=== PATIENT | female | born 1975 | race Two or more races ===

== ENCOUNTER 2019-02-28 13:25 | Inpatient (IN) | payer MEDICARE, MEDICAID ==
[~2019-02-28] VITALS: Ht 160 cm; Wt 108.0 kg
[2019-02-28 14:34] LABS: APPEARANCE,URINE CLEAR (CLEAR); BILIRUBIN,URINE NEGATIVE (NEGATIVE); GLUCOSE, URINE (UA) >=1000 mg/dL (NEGATIVE); KETONES,URINE NEGATIVE (NEGATIVE); LEUKOCYTE ESTERASE ,URINE NEGATIVE (NEGATIVE); NITRATE,URINE NEGATIVE (NEGATIVE); OCCULT BLOOD,URINE NEGATIVE (NEGATIVE); PH,URINE 6.5 (5.0-8.0); PROTEIN,URINE NEGATIVE (NEGATIVE); UROBILINOGEN,URINE 0.2 mg/dL (<=1.0)
[2019-02-28 14:45] LABS: BACTERIA,URINE None Seen /HPF (None Seen); RBC,URINE None Seen /HPF (0-2); SQUAMOUS EPITHELIAL CELL,UR Few /LPF (None Seen); WBC,URINE None Seen /HPF (0-5)
[2019-02-28 15:23] LABS: AMPHET/METH SCREEN,URINE NEGATIVE (NEGATIVE); BARBITURATE SCREEN, URINE NEGATIVE (NEGATIVE); BENZODIAZEPINES SCREEN,URINE NEGATIVE (NEGATIVE); CANNABINOID SCREEN,URINE POSITIVE (NEGATIVE); COCAINE SCREEN,URINE NEGATIVE (NEGATIVE); METHADONE SCREEN, URINE NEGATIVE (NEGATIVE); OPIATE SCREEN,URINE NEGATIVE (NEGATIVE)
[2019-02-28 15:25] LABS: PHENCYCLIDINE SCREEN,URINE NEGATIVE (NEGATIVE)
[2019-02-28] MEDS ORDERED: SODIUM CHLORIDE 0.9% 1,000 ML IV ONE (15:45)
[2019-02-28] MEDS ORDERED: 0.9% SODIUM CHLORIDE 10 ML SYRINGE IVP PRN (15:45)
[2019-02-28 15:49] LABS: GLUCOSE,POINT OF CARE 428 MG/DL (70-110)
[2019-02-28 16:03] LABS: BASOPHILS % (AUTO) 0.5 % (0.0-2.0); EOSINOPHILS % (AUTO) 1.7 % (1.0-6.0); HEMATOCRIT 38.1 % (36-46); HEMOGLOBIN 12.7 g/dL (12.0-16.0); LYMPHOCYTES % (AUTO) 29.1 % (22.0-44.0); MEAN CORPUSCULAR HGB CONC 33.4 G/dL (31.0-37.0); MEAN CORPUSCULAR VOLUME 90 fL (80-100); MONOCYTES # (AUTO) 0.3 K/uL (0.1-1.0); MONOCYTES % (AUTO) 3.2 % (2.0-9.0); NEUTROPHILS # (AUTO) 6.7 K/uL (1.8-7.7); NEUTROPHILS % (AUTO) 65.5 % (40.0-70.0); PLATELET COUNT (AUTO) 282 K/uL (150-450); RED BLOOD CELL COUNT(AUTO) 4.26 MIL/uL (4.00-5.20); RED CELL DISTRIBUTION WIDTH 13.5 % (11.5-14.5)
[2019-02-28 16:37] LABS: ALANINE AMINOTRANSFERASE 70 U/L (12-78); ALBUMIN 3.4 g/dL (3.4-5.0); ALKALINE PHOSPHATASE 206 U/L (46-116); ANION GAP 13 mmol/L (8-16); ASPARTATE AMINOTRANSFERASE 22 U/L (15-37); BILIRUBIN,TOTAL 0.2 mg/dL (0.1-1.0); CALCIUM, TOTAL 9.4 mg/dL (8.8-10.5); CARBON DIOXIDE 21 mmol/L (22-29); CHLORIDE 101 mmol/L (98-107); CREATININE 0.79 mg/dL (0.60-1.30); GLOMERULAR FILTR. RATE CALC > 60 mL/min (>60); POTASSIUM 3.8 mmol/L (3.5-5.1); SODIUM SERUM 135 mmol/L (136-145); UREA NITROGEN, BLOOD 12 mg/dL (7-18)
[2019-02-28 16:39] LABS: GLUCOSE,RANDOM 423 mg/dL (70-110)
[2019-02-28] MEDS ORDERED: INSULIN REGULAR, HUMAN 100 UNITS/ML SQ ONE (17:30)
[2019-02-28 17:49] LABS: GLUCOSE,POINT OF CARE 303 MG/DL (70-110)
[2019-02-28] MEDS ORDERED: ZOLPIDEM TARTRATE 10 MG TABLET PO PRN (21:15)
[2019-02-28] MEDS ORDERED: LORazepam 2 MG TABLET PO PRN (21:15)
[2019-02-28] MEDS: OLANZapine 5 MG TABLET PO SCH (21:37)
[2019-02-28] MEDS: GABAPENTIN 300 MG CAPSULE PO SCH (21:37)
[2019-03-01] VITALS (13 sets, daily range): BP systolic 110–138; BP diastolic 60–85
[2019-03-01 00:19] LABS: GLUCOSE,POINT OF CARE 240 MG/DL (70-110)
[2019-03-01] MEDS ORDERED: ACETAMINOPHEN 650 MG/20.3 ML SOLUTION UDCUP PO PRN (01:45)
[2019-03-01] MEDS ORDERED: IBUPROFEN 600 MG TABLET PO ONE (01:45)
[2019-03-01] MEDS ORDERED: ACETAMINOPHEN 325 MG TABLET PO PRN (02:00)
[2019-03-01 06:25] LABS: GLUCOMETER DEV NAME(LOC) BV3S.; GLUCOSE,POINT OF CARE 239 MG/DL (70-110)
[2019-03-01] MEDS: GABAPENTIN 300 MG CAPSULE PO SCH ×2 (09:41→17:43)
[2019-03-01] MEDS: OLANZapine 5 MG TABLET PO SCH ×2 (09:41→17:43)
[2019-03-01] MEDS: ESCITALOPRAM OXALATE 10 MG TABLET PO SCH (09:41)
[2019-03-01] MEDS ORDERED: PETROLATUM,WHITE 28 GM JELLY TP PRN (12:30)
[2019-03-01] MEDS ORDERED: ONDANSETRON HCL 4 MG TABLET PO PRN (12:30)
[2019-03-01] MEDS ORDERED: GuaiFENesin/D-METHORPHAN [SUGAR-FREE] 200-20MG/10 ML SYRUP UDCUP PO PRN (12:30)
[2019-03-01] MEDS ORDERED: MAGNESIUM HYDROXIDE SUSPENSION 30 ML UDCUP PO PRN (12:30)
[2019-03-01] MEDS ORDERED: DOCUSATE SODIUM 100 MG CAPSULE PO PRN (12:30)
[2019-03-01] MEDS ORDERED: DEXTROSE 50%-WATER 25 GM/50 ML SYRINGE IVP PRN (12:30)
[2019-03-01] MEDS ORDERED: LOPERAMIDE HCL 2 MG CAPSULE PO PRN (12:30)
[2019-03-01] MEDS ORDERED: ALBUTEROL SULFATE HFA 90 MCG/PUFF 8 GM INHALER IH PRN (12:30)
[2019-03-01] MEDS ORDERED: CloNIDine HCL 0.1 MG TABLET PO PRN (12:30)
[2019-03-01] MEDS ORDERED: IBUPROFEN 400 MG TABLET PO PRN (12:30)
[2019-03-01] MEDS ORDERED: MAG HYDROX/AL HYDROX/SIMETH ES 30 ML SUSPENSION UDCUP PO PRN (12:30)
[2019-03-01] MEDS: TraMADol HCL 50 MG TABLET PO PRN ×2 (12:42→21:39)
[2019-03-01] MEDS: LORazepam 1 MG TABLET PO PRN (16:55)
[2019-03-01] MEDS: ACETAMINOPHEN 325 MG TABLET PO PRN (16:58)
[2019-03-01 17:15] LABS: GLUCOMETER DEV NAME(LOC) BV3S.; GLUCOSE,POINT OF CARE 269 MG/DL (70-110)
[2019-03-01] MEDS: INSULIN LISPRO 100 UNITS/ML SQ PRN ×2 (17:20→21:15)
[2019-03-01 21:23] LABS: GLUCOMETER DEV NAME(LOC) BV3S.; GLUCOSE,POINT OF CARE 291 MG/DL (70-110)
[2019-03-02 01:23] VITALS: BP 112/70
[2019-03-02] MEDS ORDERED: GLUCAGON,HUMAN RECOMBINANT 1 MG VIAL IM PRN (02:00)
[2019-03-02 04:14] VITALS: BP 115/73
[2019-03-02] MEDS: ACETAMINOPHEN 325 MG TABLET PO PRN (04:22)
[2019-03-02 05:30] VITALS: BP 121/77
[2019-03-02 06:24] LABS: GLUCOMETER DEV NAME(LOC) BV3S.; GLUCOSE,POINT OF CARE 285 MG/DL (70-110)
[2019-03-02] MEDS: LORazepam 1 MG TABLET PO PRN ×2 (06:27→16:13)
[2019-03-02] MEDS: TraMADol HCL 50 MG TABLET PO PRN ×2 (06:27→16:12)
[2019-03-02] MEDS: INSULIN LISPRO 100 UNITS/ML SQ PRN ×4 (06:38→20:48)
[2019-03-02 08:00] LABS: HEMOGLOBIN A1C 9.1 % (4.5-6.2)
[2019-03-02 08:15] LABS: ALANINE AMINOTRANSFERASE 64 U/L (12-78); ALKALINE PHOSPHATASE 123 U/L (46-116); ANION GAP 12 mmol/L (8-16); ASPARTATE AMINOTRANSFERASE 44 U/L (15-37); BILIRUBIN,TOTAL 0.5 mg/dL (0.1-1.0); CALCIUM, TOTAL 8.8 mg/dL (8.8-10.5); CARBON DIOXIDE 24 mmol/L (22-29); CHLORIDE 100 mmol/L (98-107); CHOL/HDL RATIO 7.1 (3.9-5.7); CHOLESTEROL 257 mg/dL (131-200); CREATININE 0.75 mg/dL (0.60-1.30); FREE T4 (FREE THYROXINE) 0.85 ng/dL (0.76-1.46); GLOMERULAR FILTR. RATE CALC > 60 mL/min (>60); GLUCOSE,RANDOM 277 mg/dL (70-110); HDL CHOLESTEROL 36 mg/dL (40-60); POTASSIUM 4.4 mmol/L (3.5-5.1); SODIUM SERUM 136 mmol/L (136-145); THYROID STIMULATING HORMONE 1.24 uIU/mL (0.36-3.74); TOTAL PROTEIN, SERUM 6.6 g/dL (6.4-8.2); TRIGLYCERIDES 418 mg/dL (15-150); UREA NITROGEN, BLOOD 15 mg/dL (7-18)
[2019-03-02 08:24] VITALS: BP 118/73
[2019-03-02] MEDS: GABAPENTIN 300 MG CAPSULE PO SCH ×2 (09:04→16:12)
[2019-03-02] MEDS: OLANZapine 5 MG TABLET PO SCH ×2 (09:04→16:12)
[2019-03-02] MEDS: ESCITALOPRAM OXALATE 10 MG TABLET PO SCH (09:04)
[2019-03-02] MEDS: NICOTINE 14 MG/24 HOUR PATCH TD PRN ×2 (09:59→10:02)
[2019-03-02 11:54] LABS: GLUCOMETER DEV NAME(LOC) BV3S.; GLUCOSE,POINT OF CARE 297 MG/DL (70-110)
[2019-03-02 16:03] LABS: GLUCOMETER DEV NAME(LOC) BV3S.; GLUCOSE,POINT OF CARE 288 MG/DL (70-110)
[2019-03-02 16:10] VITALS: BP 142/96
[2019-03-02 16:12] VITALS: BP 130/78
[2019-03-02] MEDS: SIMVASTATIN 10 MG TABLET PO SCH (20:39)
[2019-03-02 20:43] LABS: GLUCOMETER DEV NAME(LOC) BV3S.; GLUCOSE,POINT OF CARE 320 MG/DL (70-110)
[2019-03-03 00:45] VITALS: BP 131/79
[2019-03-03 00:48] VITALS: BP 131/79
[2019-03-03] MEDS: LORazepam 1 MG TABLET PO PRN ×5 (00:51→23:41)
[2019-03-03] MEDS: TraMADol HCL 50 MG TABLET PO PRN ×2 (00:51→23:41)
[2019-03-03] MEDS: INSULIN LISPRO 100 UNITS/ML SQ PRN ×3 (06:37→21:12)
[2019-03-03 07:04] LABS: GLUCOMETER DEV NAME(LOC) BV3S.; GLUCOSE,POINT OF CARE 278 MG/DL (70-110)
[2019-03-03 08:10] VITALS: BP 110/60
[2019-03-03 08:11] VITALS: BP 110/60
[2019-03-03] MEDS: GABAPENTIN 300 MG CAPSULE PO SCH ×2 (08:31→16:45)
[2019-03-03] MEDS: ESCITALOPRAM OXALATE 10 MG TABLET PO SCH (08:31)
[2019-03-03] MEDS: OLANZapine 5 MG TABLET PO SCH ×2 (08:32→16:45)
[2019-03-03 11:39] LABS: GLUCOMETER DEV NAME(LOC) BV3S.; GLUCOSE,POINT OF CARE 333 MG/DL (70-110)
[2019-03-03] MEDS: HALOPERIDOL 5 MG TABLET PO PRN (14:47)
[2019-03-03 16:44] VITALS: BP 140/83
[2019-03-03] MEDS: MetFORMIN HCL 500 MG TABLET PO SCH (16:44)
[2019-03-03] MEDS: ACETAMINOPHEN 325 MG TABLET PO PRN (16:45)
[2019-03-03] MEDS: SIMVASTATIN 10 MG TABLET PO SCH (21:14)
[2019-03-03 21:49] LABS: GLUCOMETER DEV NAME(LOC) BV3N.; GLUCOSE,POINT OF CARE 391 MG/DL (70-110)
[2019-03-03 23:39] VITALS: BP 137/83
[2019-03-04 00:15] VITALS: BP 133/78
[2019-03-04] MEDS: LORazepam 1 MG TABLET PO PRN ×2 (06:20→12:38)
[2019-03-04] MEDS: ACETAMINOPHEN 325 MG TABLET PO PRN (06:20)
[2019-03-04 06:39] LABS: GLUCOMETER DEV NAME(LOC) BV3S.; GLUCOSE,POINT OF CARE 347 MG/DL (70-110)
[2019-03-04] MEDS: MetFORMIN HCL 500 MG TABLET PO SCH ×2 (06:39→16:36)
[2019-03-04] MEDS: INSULIN LISPRO 100 UNITS/ML SQ PRN ×3 (06:40→20:52)
[2019-03-04 08:00] VITALS: BP 112/63
[2019-03-04 08:12] VITALS: BP 112/63
[2019-03-04 09:26] VITALS: BP 115/70
[2019-03-04] MEDS: HALOPERIDOL 5 MG TABLET PO PRN ×2 (09:28→16:36)
[2019-03-04] MEDS: TraMADol HCL 50 MG TABLET PO PRN (09:28)
[2019-03-04] MEDS: GABAPENTIN 300 MG CAPSULE PO SCH ×2 (09:28→16:36)
[2019-03-04] MEDS: OLANZapine 5 MG TABLET PO SCH ×2 (09:28→16:36)
[2019-03-04] MEDS: ESCITALOPRAM OXALATE 10 MG TABLET PO SCH (09:28)
[2019-03-04 10:28] VITALS: BP 111/68
[2019-03-04] MEDS ORDERED: ESCITALOPRAM OXALATE 10 MG TABLET PO ONE (11:30)
[2019-03-04 12:04] LABS: GLUCOMETER DEV NAME(LOC) BV3S.; GLUCOSE,POINT OF CARE 365 MG/DL (70-110)
[2019-03-04 16:09] VITALS: BP 103/75
[2019-03-04] MEDS: LURASIDONE HCL 80 MG TABLET PO SCH (16:36)
[2019-03-04] MEDS: SIMVASTATIN 10 MG TABLET PO SCH (20:46)
[2019-03-04 22:19] LABS: GLUCOMETER DEV NAME(LOC) BV3S.; GLUCOSE,POINT OF CARE 368 MG/DL (70-110)
[2019-03-05] VITALS (8 sets, daily range): BP systolic 131–150; BP diastolic 77–92
[2019-03-05] MEDS: LORazepam 1 MG TABLET PO PRN ×2 (05:29→11:41)
[2019-03-05] MEDS: TraMADol HCL 50 MG TABLET PO PRN ×2 (05:30→15:19)
[2019-03-05] MEDS: MetFORMIN HCL 500 MG TABLET PO SCH ×2 (06:38→16:09)
[2019-03-05] MEDS: ESCITALOPRAM OXALATE 10 MG TABLET PO SCH (08:36)
[2019-03-05] MEDS: GABAPENTIN 300 MG CAPSULE PO SCH ×2 (08:36→16:09)
[2019-03-05] MEDS: OLANZapine 5 MG TABLET PO SCH ×2 (08:36→16:09)
[2019-03-05] MEDS: INSULIN LISPRO 100 UNITS/ML SQ PRN ×3 (11:44→20:55)
[2019-03-05 12:30] LABS: GLUCOMETER DEV NAME(LOC) BV3S.; GLUCOSE,POINT OF CARE 347 MG/DL (70-110)
[2019-03-05] MEDS: HALOPERIDOL 5 MG TABLET PO PRN (13:17)
[2019-03-05] MEDS: LURASIDONE HCL 80 MG TABLET PO SCH (16:08)
[2019-03-05 16:14] LABS: GLUCOMETER DEV NAME(LOC) BV3S.; GLUCOSE,POINT OF CARE 373 MG/DL (70-110)
[2019-03-05] MEDS: SIMVASTATIN 10 MG TABLET PO SCH (20:50)
[2019-03-05 20:55] LABS: GLUCOMETER DEV NAME(LOC) BV3S.; GLUCOSE,POINT OF CARE 301 MG/DL (70-110)
[2019-03-05] MEDS: ACETAMINOPHEN 325 MG TABLET PO PRN (21:11)
[2019-03-06 05:30] VITALS: BP 132/78
[2019-03-06] MEDS: LORazepam 1 MG TABLET PO PRN (05:32)
[2019-03-06] MEDS: TraMADol HCL 50 MG TABLET PO PRN (05:32)
[2019-03-06 05:40] VITALS: BP 132/78
[2019-03-06 05:45] VITALS: BP 132/78
[2019-03-06 06:04] LABS: GLUCOMETER DEV NAME(LOC) BV3S.; GLUCOSE,POINT OF CARE 299 MG/DL (70-110)
[2019-03-06] MEDS: MetFORMIN HCL 500 MG TABLET PO SCH (06:52)
[2019-03-06] MEDS: INSULIN LISPRO 100 UNITS/ML SQ PRN ×2 (06:53→11:47)
[2019-03-06 08:21] VITALS: BP 103/68
[2019-03-06] MEDS: ESCITALOPRAM OXALATE 10 MG TABLET PO SCH (08:33)
[2019-03-06] MEDS: GABAPENTIN 300 MG CAPSULE PO SCH (08:33)
[2019-03-06] MEDS: OLANZapine 5 MG TABLET PO SCH (08:33)
[2019-03-06] MEDS ORDERED: SIMV-260 PO (10:01)
[2019-03-06] MEDS ORDERED: METF-960 PO (10:01)
[2019-03-06] MEDS ORDERED: GABA-531 PO (10:01)
[2019-03-06] MEDS ORDERED: OLAN5TAB2 PO (10:01)
[2019-03-06] MEDS ORDERED: LURA80 PO (10:01)
[2019-03-06] MEDS ORDERED: ESCI20TA PO (10:01)
[2019-03-06] MEDS: ACETAMINOPHEN 325 MG TABLET PO PRN (10:50)
[2019-03-06 12:09] LABS: GLUCOMETER DEV NAME(LOC) BV3S.; GLUCOSE,POINT OF CARE 301 MG/DL (70-110)
== END 2019-03-06 13:05 | disposition home or self-care (01) | DRG 885 ==
LOC: EDBD 13:28 → EMS 13:28 → B3A 23:59
PROVIDERS: ADMIT Psychiatry & Neurology Psychiatry; ATTEND Psychiatry & Neurology Psychiatry
DX: F25.1 Schizoaffective disorder, depressive type (principal); R45.851 Suicidal ideations; E87.1 Hypo-osmolality and hyponatremia; F12.10 Cannabis abuse, uncomplicated; E11.65 Type 2 diabetes mellitus with hyperglycemia; F19.90 Other psychoactive substance use, unspecified, uncomplicated; Y90.6 Blood alcohol level of 120-199 mg/100 ml; R41.843 Psychomotor deficit; S00.83XA Contusion of other part of head, initial encounter; F10.20 Alcohol dependence, uncomplicated; X58.XXXA Exposure to other specified factors, initial encounter; Y93.89 Activity, other specified; Y92.89 Other specified places as the place of occurrence of the external cause; Z79.84 Long term (current) use of oral hypoglycemic drugs; Z71.41 Alcohol abuse counseling and surveillance of alcoholic; Z71.51 Drug abuse counseling and surveillance of drug abuser; Z88.6 Allergy status to analgesic agent; Y99.8 Other external cause status
CPT/HCPCS: 70450; 72125; 83036; 84439; 84443; G0480; J1815; J7030

== ENCOUNTER 2019-09-13 10:18 | Inpatient (IN) | payer MEDICARE, MEDICAID ==
[~2019-09-13] VITALS: Ht 160 cm; Wt 99.3 kg
[~2019-09-13 10:18] MED LIST: ESCI20TA PO; FAMO20 PO; FLUO-191 PO; GABA-531 PO; INSLAN SQ; LURA80 PO; METF-960 PO; OLAN5TAB2 PO; SIMV-260 PO
[2019-09-13 12:08] LABS: BASOPHILS % (AUTO) 0.4 % (0.0-2.0); EOSINOPHILS % (AUTO) 0.9 % (1.0-6.0); HEMATOCRIT 39.6 % (36-46); HEMOGLOBIN 13.3 g/dL (12.0-16.0); LYMPHOCYTES # (AUTO) 3.2 K/uL (1.0-4.8); LYMPHOCYTES % (AUTO) 20.7 % (22.0-44.0); MEAN CORPUSCULAR HEMOGLOBIN 29.8 pg (26.0-34.0); MEAN CORPUSCULAR HGB CONC 33.7 G/dL (31.0-37.0); MEAN CORPUSCULAR VOLUME 89 fL (80-100); MONOCYTES # (AUTO) 0.8 K/uL (0.1-1.0); NEUTROPHILS # (AUTO) 11.4 K/uL (1.8-7.7); PLATELET COUNT (AUTO) 375 K/uL (150-450); RED BLOOD CELL COUNT(AUTO) 4.47 MIL/uL (4.00-5.20); RED CELL DISTRIBUTION WIDTH 13.7 % (11.5-14.5)
[2019-09-13 12:28] LABS: ANION GAP 14 mmol/L (8-16); CALCIUM, TOTAL 9.2 mg/dL (8.8-10.5); CARBON DIOXIDE 23 mmol/L (22-29); CHLORIDE 95 mmol/L (98-107); CREATININE 0.72 mg/dL (0.60-1.30); GLOMERULAR FILTR. RATE CALC > 60 mL/min (>60); GLUCOSE,RANDOM 252 mg/dL (70-110); POTASSIUM 3.7 mmol/L (3.5-5.1); SODIUM SERUM 132 mmol/L (136-145); UREA NITROGEN, BLOOD 14 mg/dL (7-18)
[2019-09-13 12:29] LABS: SALICYLATE 1.4 mg/dL (2.8-20.0)
[2019-09-13 12:38] LABS: ACETAMINOPHEN < 2 mcg/mL (10-30); ALANINE AMINOTRANSFERASE 44 U/L (12-78); ALBUMIN 3.6 g/dL (3.4-5.0); ALKALINE PHOSPHATASE 139 U/L (46-116); ASPARTATE AMINOTRANSFERASE 25 U/L (15-37); HCG,QUANTITATIVE < 1 mIU/mL (0-6); TOTAL PROTEIN, SERUM 7.5 g/dL (6.4-8.2)
[2019-09-13] MEDS ORDERED: OLANZapine 5 MG TABLET PO ONE (12:45)
[2019-09-13] MEDS ORDERED: LORazepam 1 MG TABLET PO ONE (12:45)
[2019-09-13 14:15] LABS: GLUCOSE,POINT OF CARE 220 MG/DL (70-110)
[2019-09-13] MEDS ORDERED: ZOLPIDEM TARTRATE 10 MG TABLET PO PRN (14:15)
[2019-09-13 14:43] LABS: AMPHET/METH SCREEN,URINE POSITIVE (NEGATIVE); BARBITURATE SCREEN, URINE NEGATIVE (NEGATIVE); BENZODIAZEPINES SCREEN,URINE NEGATIVE (NEGATIVE); CANNABINOID SCREEN,URINE POSITIVE (NEGATIVE); COCAINE SCREEN,URINE POSITIVE (NEGATIVE); METHADONE SCREEN, URINE NEGATIVE (NEGATIVE); OPIATE SCREEN,URINE NEGATIVE (NEGATIVE)
[2019-09-13 14:44] LABS: PHENCYCLIDINE SCREEN,URINE NEGATIVE (NEGATIVE)
[2019-09-13 16:42] LABS: APPEARANCE,URINE CLOUDY (CLEAR); BILIRUBIN,URINE NEGATIVE (NEGATIVE); GLUCOSE, URINE (UA) >=1000 mg/dL (NEGATIVE); KETONES,URINE NEGATIVE (NEGATIVE); LEUKOCYTE ESTERASE ,URINE MODERATE (NEGATIVE); NITRATE,URINE NEGATIVE (NEGATIVE); OCCULT BLOOD,URINE NEGATIVE (NEGATIVE); PROTEIN,URINE NEGATIVE (NEGATIVE); UROBILINOGEN,URINE 0.2 mg/dL (<=1.0)
[2019-09-13 16:54] LABS: RBC,URINE None Seen /HPF (0-2)
[2019-09-13 16:55] LABS: BACTERIA,URINE Moderate /HPF (None Seen); SQUAMOUS EPITHELIAL CELL,UR Few /LPF (None Seen)
[2019-09-13 17:25] LABS: GLUCOMETER DEV NAME(LOC) 3EX.; GLUCOSE,POINT OF CARE 250 MG/DL (70-110)
[2019-09-13] MEDS ORDERED: DEXTROSE 50%-WATER 25 GM/50 ML SYRINGE IVP PRN (18:00)
[2019-09-13] MEDS ORDERED: LOPERAMIDE HCL 2 MG CAPSULE PO PRN (18:00)
[2019-09-13] MEDS ORDERED: MAGNESIUM HYDROXIDE SUSPENSION 30 ML UDCUP PO PRN (18:00)
[2019-09-13] MEDS ORDERED: NICOTINE 14 MG/24 HOUR PATCH TD PRN (18:00)
[2019-09-13] MEDS ORDERED: GuaiFENesin/D-METHORPHAN [SUGAR-FREE] 200-20MG/10 ML SYRUP UDCUP PO PRN (18:00)
[2019-09-13] MEDS ORDERED: PETROLATUM,WHITE 28 GM JELLY TP PRN (18:00)
[2019-09-13] MEDS ORDERED: ALBUTEROL SULFATE HFA 90 MCG/PUFF 8 GM INHALER IH PRN (18:00)
[2019-09-13] MEDS ORDERED: MAG HYDROX/AL HYDROX/SIMETH ES 30 ML SUSPENSION UDCUP PO PRN (18:00)
[2019-09-13] MEDS ORDERED: DOCUSATE SODIUM 100 MG CAPSULE PO PRN (18:00)
[2019-09-13] MEDS ORDERED: CloNIDine HCL 0.1 MG TABLET PO PRN (18:00)
[2019-09-13] MEDS ORDERED: INFLUENZA VIRUS VACCINE QVS 2019-20 (3YR+)/PF 60 MCG/0.5 ML SYRINGE IM ONE (19:00)
[2019-09-13 19:49] VITALS: BP 136/99
[2019-09-13 21:55] LABS: GLUCOMETER DEV NAME(LOC) 3EX.; GLUCOSE,POINT OF CARE 233 MG/DL (70-110)
[2019-09-14 05:42] LABS: GLUCOMETER DEV NAME(LOC) 3EX.; GLUCOSE,POINT OF CARE 227 MG/DL (70-110)
[2019-09-14] MEDS: INSULIN LISPRO 100 UNITS/ML SQ PRN ×3 (06:43→21:08)
[2019-09-14] MEDS: MetFORMIN HCL 500 MG TABLET PO SCH ×2 (07:00→16:36)
[2019-09-14] MEDS: GABAPENTIN 300 MG CAPSULE PO SCH ×2 (08:44→16:36)
[2019-09-14] MEDS: SIMVASTATIN 20 MG TABLET PO SCH (08:44)
[2019-09-14] MEDS: FAMOTIDINE 20 MG TABLET PO SCH ×2 (08:45→16:36)
[2019-09-14 10:43] VITALS: BP 124/76
[2019-09-14] MEDS: ESCITALOPRAM OXALATE 20 MG TABLET PO SCH (13:47)
[2019-09-14] MEDS: BACITRACIN 28.4 GM OINTMENT TP SCH ×2 (13:48→16:37)
[2019-09-14 16:00] VITALS: BP 123/74
[2019-09-14] MEDS: LURASIDONE HCL 80 MG TABLET PO SCH (16:36)
[2019-09-14] MEDS: LORazepam 2 MG TABLET PO PRN (16:37)
[2019-09-14] MEDS: ONDANSETRON HCL 4 MG TABLET PO PRN (17:17)
[2019-09-14] MEDS: CIPROFLOXACIN HCL 250 MG TABLET PO SCH (20:23)
[2019-09-14 20:36] LABS: GLUCOMETER DEV NAME(LOC) 3E.I; GLUCOSE,POINT OF CARE 189 MG/DL (70-110)
[2019-09-14 21:23] LABS: GLUCOMETER DEV NAME(LOC) 3E.I; GLUCOSE,POINT OF CARE 191 MG/DL (70-110)
[2019-09-15 05:36] LABS: GLUCOMETER DEV NAME(LOC) 3EX.; GLUCOSE,POINT OF CARE 219 MG/DL (70-110)
[2019-09-15] MEDS: INSULIN LISPRO 100 UNITS/ML SQ PRN ×4 (06:39→20:44)
[2019-09-15] MEDS: MetFORMIN HCL 500 MG TABLET PO SCH ×2 (06:48→17:04)
[2019-09-15] MEDS ORDERED: LURASIDONE HCL 40 MG TABLET PO SCH (07:30)
[2019-09-15] MEDS: GABAPENTIN 300 MG CAPSULE PO SCH ×2 (08:24→17:05)
[2019-09-15] MEDS: CIPROFLOXACIN HCL 250 MG TABLET PO SCH ×2 (08:24→20:44)
[2019-09-15] MEDS: MULTIVITAMINS WITH MINERALS, THERAPEUTIC TABLET PO SCH (08:24)
[2019-09-15] MEDS: FAMOTIDINE 20 MG TABLET PO SCH ×2 (08:24→17:04)
[2019-09-15] MEDS: SIMVASTATIN 20 MG TABLET PO SCH (08:25)
[2019-09-15] MEDS: LORazepam 2 MG TABLET PO PRN ×2 (08:25→17:32)
[2019-09-15] MEDS: ESCITALOPRAM OXALATE 20 MG TABLET PO SCH (08:26)
[2019-09-15] MEDS: BACITRACIN 28.4 GM OINTMENT TP SCH ×2 (08:28→17:05)
[2019-09-15 09:53] VITALS: BP 138/90
[2019-09-15 11:58] LABS: GLUCOMETER DEV NAME(LOC) 3E.I; GLUCOSE,POINT OF CARE 179 MG/DL (70-110)
[2019-09-15 17:00] VITALS: BP 122/74
[2019-09-15] MEDS: LURASIDONE HCL 80 MG TABLET PO SCH (17:04)
[2019-09-15 17:23] LABS: GLUCOMETER DEV NAME(LOC) 3E.I; GLUCOSE,POINT OF CARE 199 MG/DL (70-110)
[2019-09-15 20:59] LABS: GLUCOMETER DEV NAME(LOC) 3E.I; GLUCOSE,POINT OF CARE 158 MG/DL (70-110)
[2019-09-16] MEDS: LORazepam 2 MG TABLET PO PRN ×2 (04:39→17:36)
[2019-09-16 06:52] LABS: GLUCOMETER DEV NAME(LOC) 3EX.; GLUCOSE,POINT OF CARE 257 MG/DL (70-110)
[2019-09-16] MEDS: INSULIN LISPRO 100 UNITS/ML SQ PRN ×4 (06:54→21:32)
[2019-09-16] MEDS: MetFORMIN HCL 500 MG TABLET PO SCH ×2 (06:55→17:35)
[2019-09-16] MEDS: BACITRACIN 28.4 GM OINTMENT TP SCH ×2 (09:00→17:36)
[2019-09-16] MEDS: SIMVASTATIN 20 MG TABLET PO SCH (09:14)
[2019-09-16] MEDS: ESCITALOPRAM OXALATE 20 MG TABLET PO SCH (09:14)
[2019-09-16] MEDS: FAMOTIDINE 20 MG TABLET PO SCH ×2 (09:14→17:35)
[2019-09-16] MEDS: CIPROFLOXACIN HCL 250 MG TABLET PO SCH ×2 (09:15→21:30)
[2019-09-16] MEDS: GABAPENTIN 300 MG CAPSULE PO SCH ×2 (09:16→17:35)
[2019-09-16] MEDS: MULTIVITAMINS WITH MINERALS, THERAPEUTIC TABLET PO SCH (09:16)
[2019-09-16 09:52] VITALS: BP 122/78
[2019-09-16 11:28] LABS: GLUCOMETER DEV NAME(LOC) 3E.I; GLUCOSE,POINT OF CARE 146 MG/DL (70-110)
[2019-09-16 17:23] LABS: GLUCOMETER DEV NAME(LOC) 3E.I; GLUCOSE,POINT OF CARE 144 MG/DL (70-110)
[2019-09-16] MEDS: LURASIDONE HCL 80 MG TABLET PO SCH (17:35)
[2019-09-16 17:55] VITALS: BP 135/98
[2019-09-16 21:38] LABS: GLUCOMETER DEV NAME(LOC) 3E.I; GLUCOSE,POINT OF CARE 180 MG/DL (70-110)
[2019-09-16] MEDS: ONDANSETRON HCL 4 MG TABLET PO PRN (21:38)
[2019-09-17] MEDS: LORazepam 2 MG TABLET PO PRN ×3 (03:11→16:42)
[2019-09-17 03:44] VITALS: BP 125/81
[2019-09-17 05:30] LABS: GLUCOMETER DEV NAME(LOC) 3EX.; GLUCOSE,POINT OF CARE 249 MG/DL (70-110)
[2019-09-17] MEDS: MetFORMIN HCL 500 MG TABLET PO SCH ×2 (07:12→17:29)
[2019-09-17] MEDS: INSULIN LISPRO 100 UNITS/ML SQ PRN ×3 (07:14→21:36)
[2019-09-17] MEDS: SIMVASTATIN 20 MG TABLET PO SCH (08:02)
[2019-09-17] MEDS: FAMOTIDINE 20 MG TABLET PO SCH ×2 (08:02→16:42)
[2019-09-17] MEDS: GABAPENTIN 300 MG CAPSULE PO SCH ×2 (08:02→16:42)
[2019-09-17] MEDS: MULTIVITAMINS WITH MINERALS, THERAPEUTIC TABLET PO SCH (08:02)
[2019-09-17] MEDS: ESCITALOPRAM OXALATE 20 MG TABLET PO SCH (08:02)
[2019-09-17 09:34] VITALS: BP 96/71
[2019-09-17] MEDS: BACITRACIN 28.4 GM OINTMENT TP SCH ×2 (10:02→16:42)
[2019-09-17] MEDS: CIPROFLOXACIN HCL 250 MG TABLET PO SCH ×2 (10:02→22:12)
[2019-09-17 11:35] LABS: GLUCOMETER DEV NAME(LOC) 3E.I; GLUCOSE,POINT OF CARE 134 MG/DL (70-110)
[2019-09-17] MEDS: HALOPERIDOL 5 MG TABLET PO PRN (12:58)
[2019-09-17] MEDS: ACETAMINOPHEN 325 MG TABLET PO PRN (12:58)
[2019-09-17 16:50] LABS: GLUCOMETER DEV NAME(LOC) 3E.I; GLUCOSE,POINT OF CARE 142 MG/DL (70-110)
[2019-09-17] MEDS: LURASIDONE HCL 80 MG TABLET PO SCH (17:29)
[2019-09-17 18:41] VITALS: BP 105/69
[2019-09-17 21:38] LABS: GLUCOMETER DEV NAME(LOC) 3E.I; GLUCOSE,POINT OF CARE 156 MG/DL (70-110)
[2019-09-17] MEDS: ChlorproMAZINE HCL 50 MG TABLET PO SCH (22:12)
[2019-09-18 06:08] LABS: GLUCOMETER DEV NAME(LOC) 3EX.; GLUCOSE,POINT OF CARE 175 MG/DL (70-110)
[2019-09-18] MEDS: MetFORMIN HCL 500 MG TABLET PO SCH ×2 (06:43→17:15)
[2019-09-18] MEDS: LORazepam 2 MG TABLET PO PRN ×2 (06:45→14:35)
[2019-09-18] MEDS: INSULIN LISPRO 100 UNITS/ML SQ PRN ×4 (06:50→20:22)
[2019-09-18 08:48] VITALS: BP 118/75
[2019-09-18] MEDS: MULTIVITAMINS WITH MINERALS, THERAPEUTIC TABLET PO SCH (09:02)
[2019-09-18] MEDS: CIPROFLOXACIN HCL 250 MG TABLET PO SCH ×2 (09:03→20:14)
[2019-09-18] MEDS: ESCITALOPRAM OXALATE 20 MG TABLET PO SCH (09:03)
[2019-09-18] MEDS: BACITRACIN 28.4 GM OINTMENT TP SCH ×2 (09:03→16:22)
[2019-09-18] MEDS: GABAPENTIN 300 MG CAPSULE PO SCH ×2 (09:03→16:22)
[2019-09-18] MEDS: FAMOTIDINE 20 MG TABLET PO SCH ×2 (09:03→16:22)
[2019-09-18] MEDS: SIMVASTATIN 20 MG TABLET PO SCH (09:03)
[2019-09-18 11:27] LABS: GLUCOMETER DEV NAME(LOC) 3E.I; GLUCOSE,POINT OF CARE 152 MG/DL (70-110)
[2019-09-18 14:34] VITALS: BP 112/76
[2019-09-18] MEDS: ONDANSETRON HCL 4 MG TABLET PO PRN (14:35)
[2019-09-18] MEDS: ACETAMINOPHEN 325 MG TABLET PO PRN (14:35)
[2019-09-18 16:42] LABS: GLUCOMETER DEV NAME(LOC) 3E.I; GLUCOSE,POINT OF CARE 207 MG/DL (70-110)
[2019-09-18 16:57] VITALS: BP 97/53
[2019-09-18] MEDS: LURASIDONE HCL 40 MG TABLET PO SCH (17:16)
[2019-09-18] MEDS: ChlorproMAZINE HCL 50 MG TABLET PO SCH (20:15)
[2019-09-18 20:40] LABS: GLUCOMETER DEV NAME(LOC) 3E.I; GLUCOSE,POINT OF CARE 143 MG/DL (70-110)
[2019-09-19 05:33] LABS: GLUCOMETER DEV NAME(LOC) 3EX.; GLUCOSE,POINT OF CARE 150 MG/DL (70-110)
[2019-09-19] MEDS: INSULIN LISPRO 100 UNITS/ML SQ PRN ×3 (06:54→17:25)
[2019-09-19] MEDS: MetFORMIN HCL 500 MG TABLET PO SCH ×2 (06:56→17:25)
[2019-09-19] MEDS: LORazepam 2 MG TABLET PO PRN ×2 (06:56→15:10)
[2019-09-19] MEDS: CIPROFLOXACIN HCL 250 MG TABLET PO SCH ×2 (08:22→20:32)
[2019-09-19] MEDS: ESCITALOPRAM OXALATE 20 MG TABLET PO SCH (08:22)
[2019-09-19] MEDS: GABAPENTIN 300 MG CAPSULE PO SCH ×2 (08:22→16:54)
[2019-09-19] MEDS: MULTIVITAMINS WITH MINERALS, THERAPEUTIC TABLET PO SCH (08:23)
[2019-09-19] MEDS: SIMVASTATIN 20 MG TABLET PO SCH (08:23)
[2019-09-19] MEDS: BACITRACIN 28.4 GM OINTMENT TP SCH ×2 (08:23→16:49)
[2019-09-19] MEDS: FAMOTIDINE 20 MG TABLET PO SCH ×2 (08:23→16:49)
[2019-09-19 08:44] VITALS: BP 110/70
[2019-09-19] MEDS: ONDANSETRON HCL 4 MG TABLET PO PRN (11:19)
[2019-09-19 11:59] LABS: GLUCOMETER DEV NAME(LOC) 3EX.; GLUCOSE,POINT OF CARE 198 MG/DL (70-110)
[2019-09-19] MEDS: ACETAMINOPHEN 325 MG TABLET PO PRN (16:51)
[2019-09-19 16:52] VITALS: BP 121/75
[2019-09-19 17:17] VITALS: BP 119/68
[2019-09-19] MEDS: LURASIDONE HCL 40 MG TABLET PO SCH (17:25)
[2019-09-19 17:41] LABS: GLUCOMETER DEV NAME(LOC) 3EX.; GLUCOSE,POINT OF CARE 170 MG/DL (70-110)
[2019-09-19] MEDS: HALOPERIDOL 5 MG TABLET PO PRN (18:00)
[2019-09-19] MEDS: ChlorproMAZINE HCL 50 MG TABLET PO SCH (20:32)
[2019-09-19 21:34] LABS: GLUCOMETER DEV NAME(LOC) 3E.I 2; GLUCOSE,POINT OF CARE 138 MG/DL (70-110)
[2019-09-20 05:42] LABS: GLUCOMETER DEV NAME(LOC) 3EX.; GLUCOSE,POINT OF CARE 171 MG/DL (70-110)
[2019-09-20] MEDS: INSULIN LISPRO 100 UNITS/ML SQ PRN ×2 (06:38→12:16)
[2019-09-20 06:58] VITALS: BP 126/73
[2019-09-20] MEDS: LORazepam 2 MG TABLET PO PRN ×2 (07:00→12:19)
[2019-09-20] MEDS: MetFORMIN HCL 500 MG TABLET PO SCH (07:00)
[2019-09-20] MEDS: CIPROFLOXACIN HCL 250 MG TABLET PO SCH (08:33)
[2019-09-20] MEDS: SIMVASTATIN 20 MG TABLET PO SCH (08:33)
[2019-09-20] MEDS: ESCITALOPRAM OXALATE 20 MG TABLET PO SCH (08:33)
[2019-09-20] MEDS: MULTIVITAMINS WITH MINERALS, THERAPEUTIC TABLET PO SCH (08:33)
[2019-09-20] MEDS: FAMOTIDINE 20 MG TABLET PO SCH (08:34)
[2019-09-20] MEDS: GABAPENTIN 300 MG CAPSULE PO SCH (08:34)
[2019-09-20 08:39] LABS: BASOPHILS % (AUTO) 0.5 % (0.0-2.0); EOSINOPHILS % (AUTO) 2.3 % (1.0-6.0); HEMATOCRIT 37.6 % (36-46); LYMPHOCYTES % (AUTO) 22.1 % (22.0-44.0); MEAN CORPUSCULAR HEMOGLOBIN 30.5 pg (26.0-34.0); MEAN CORPUSCULAR HGB CONC 34.4 G/dL (31.0-37.0); MEAN CORPUSCULAR VOLUME 89 fL (80-100); MONOCYTES # (AUTO) 0.9 K/uL (0.1-1.0); MONOCYTES % (AUTO) 6.7 % (2.0-9.0); NEUTROPHILS # (AUTO) 9.4 K/uL (1.8-7.7); NEUTROPHILS % (AUTO) 68.4 % (40.0-70.0); PLATELET COUNT (AUTO) 291 K/uL (150-450); RED BLOOD CELL COUNT(AUTO) 4.25 MIL/uL (4.00-5.20); RED CELL DISTRIBUTION WIDTH 13.6 % (11.5-14.5)
[2019-09-20 09:28] VITALS: BP 108/78
[2019-09-20 11:59] LABS: GLUCOMETER DEV NAME(LOC) 3E.I 2; GLUCOSE,POINT OF CARE 166 MG/DL (70-110)
[2019-09-20] MEDS: ONDANSETRON HCL 4 MG TABLET PO PRN (12:20)
[2019-09-20] MEDS ORDERED: LURA40 PO (13:07)
[2019-09-20] MEDS ORDERED: CHLO50 PO (13:59)
[2019-09-20] MEDS ORDERED: ChlorproMAZINE HCL 100 MG TABLET PO SCH (21:00)
== END 2019-09-20 15:50 | disposition home or self-care (01) | DRG 885 ==
LOC: EMS 10:20 → 3EX 16:17
PROVIDERS: ADMIT Psychiatry & Neurology Psychiatry; ATTEND Psychiatry & Neurology Psychiatry
DX: F25.9 Schizoaffective disorder, unspecified (principal); R45.851 Suicidal ideations; N39.0 Urinary tract infection, site not specified; Z28.21 Immunization not carried out because of patient refusal; E78.5 Hyperlipidemia, unspecified; E11.9 Type 2 diabetes mellitus without complications; K21.9 Gastro-esophageal reflux disease without esophagitis; D72.829 Elevated white blood cell count, unspecified; F10.10 Alcohol abuse, uncomplicated; Y90.9 Presence of alcohol in blood, level not specified; F19.10 Other psychoactive substance abuse, uncomplicated; F14.10 Cocaine abuse, uncomplicated; F31.9 Bipolar disorder, unspecified; Z91.14 Patient's other noncompliance with medication regimen; F41.9 Anxiety disorder, unspecified
CPT/HCPCS: 87086; G0378; G0480; G0481; Q0162

== ENCOUNTER 2019-09-28 20:49 | Emergency (ER) | payer MEDICARE, MEDICAID ==
[~2019-09-28] VITALS: Ht 160 cm; Wt 97.7 kg
[~2019-09-28 20:49] MED LIST changes: +CHLO50 PO; -FLUO-191 PO; -INSLAN SQ; +LURA40 PO; -LURA80 PO; -OLAN5TAB2 PO
[2019-09-28] MEDS ORDERED: DULO20CA30 PO (21:12)
[2019-09-28] MEDS ORDERED: BUSP30TA2 PO (21:12)
[2019-09-28 21:20] LABS: GLUCOSE,POINT OF CARE 392 MG/DL (70-110)
[2019-09-28 22:01] VITALS: BP 136/81
[2019-09-28] MEDS ORDERED: ACETAMINOPHEN 325 MG TABLET PO ONE (22:15)
[2019-09-28] MEDS ORDERED: CIPROFLOXACIN HCL 250 MG TABLET PO ONE (22:15)
== END 2019-09-28 22:30 | disposition home or self-care (01) ==
LOC: EMS 20:50
DX: H60.91 Unspecified otitis externa, right ear (principal); E11.9 Type 2 diabetes mellitus without complications; F10.20 Alcohol dependence, uncomplicated; Z79.899 Other long term (current) drug therapy; Z79.84 Long term (current) use of oral hypoglycemic drugs; Z88.8 Allergy status to other drugs, medicaments and biological substances